=== PATIENT | female | born 1990 | race Asian ===

== ENCOUNTER → 2016-11-23 | Outpatient (CLI) | payer OTHER ==
[~2016-11-23] MED LIST: MOTRIN-DPS800 MG PO; OMEGA-3 DPS1000 MG PO; PRENATAL VIT1 TAB PO
== END | disposition home or self-care (01) ==
LOC: RAD.S 11:24
DX: R10.2 Pelvic and perineal pain (principal); N83.201 Unspecified ovarian cyst, right side